=== PATIENT | female | born 1975 | race African-American/Black ===

== ENCOUNTER 2024-01-24 12:43 | Inpatient (IN) | payer OTHER ==
[2024-01-24 13:15] VITALS: BMI 33.4
[2024-01-24] MEDS ORDERED: ACETAMINOPHEN 325 MG TABLET (FP) PO PRN (13:49)
[2024-01-24] MEDS ORDERED: BISMUTH SUBSALICYLATE 524 MG/30 ML PO PRN (13:49)
[2024-01-24] MEDS ORDERED: BENZONATATE 200 MG CAPSULE PO PRN (13:49)
[2024-01-24] MEDS ORDERED: ONDANSETRON *ODT* 4 MG TABLET SL PRN (13:49)
[2024-01-24] MEDS ORDERED: LOPERAMIDE HCL 2 MG CAPSULE PO PRN (13:49)
[2024-01-24] MEDS ORDERED: hydrOXYzine PAMOATE 25 MG CAPSULE (FP) PO PRN (13:49)
[2024-01-24] MEDS ORDERED: guaiFENesin 600 MG TABLET.ER (FP) PO PRN (13:49)
[2024-01-24] MEDS ORDERED: BENZOCAINE/MENTHOL (CHLORASEPTIC ) LOZENGE MM PRN (13:49)
[2024-01-24] MEDS ORDERED: chlordiazePOXIDE HCL 25 MG CAPSULE PO PRN (13:49)
[2024-01-24] MEDS ORDERED: POLYETHYLENE GLYCOL (HEALTHYLAX) 3350 17 GM PACKET PO PRN (13:49)
[2024-01-24] MEDS: chlordiazePOXIDE HCL 25 MG CAPSULE PO SCH (17:17)
[2024-01-24] MEDS: MELATONIN 5 MG TABLETS PO SCH (22:39)
[2024-01-24] MEDS: THIAMINE HCL 100 MG TABLET (FP) PO SCH (22:39)
[2024-01-25] MEDS: IBUPROFEN 600 MG TABLET (FP) PO PRN (09:28)
[2024-01-25] MEDS: PRENATAL VITAMINS W/ FOLIC ACID TABLET (FP) PO SCH (09:29)
[2024-01-25 11:45] LABS: HEMATOCRIT 30.8 % (32.4-45.2); HEMOGLOBIN 9.6 GM/dL (10.7-15.3); MCH 23.8 pg (25.7-33.7); MCHC 31.2 g/dl (32.0-36.0); MEAN CELL VOLUME 76.1 fl (80-96); MEAN PLT VOLUME 9.6 fl (7.5-11.1); PLATELET COUNT 258 10^3/uL (134-434); RBC 4.04 M/mm3 (3.60-5.2); RDW 17.2 % (11.6-15.6); WHITE BLOOD COUNT 3.9 K/mm3 (4.0-10.0)
[2024-01-25 11:53] LABS: CHLORIDE 108 mmol/L (98-107); POTASSIUM 4.1 mmol/L (3.5-5.1); SODIUM 137 mmol/L (136-145)
[2024-01-25 12:02] LABS: CALCIUM 9.3 mg/dL (8.5-10.1)
[2024-01-25 12:03] LABS: ALBUMIN 2.9 g/dl (3.4-5.0); ANION GAP 2 mmol/L (4-13); CO2 27 mmol/L (21-32); GLUCOSE,RANDOM 84 mg/dL (74-106)
[2024-01-25 12:06] LABS: CREATININE 0.6 mg/dL (0.55-1.3); SGOT/AST 25 U/L (15-37); SGPT/ALT 25 U/L (13-61)
[2024-01-25 12:09] LABS: ALK PHOS 74 U/L (45-117); BILIRUBIN,TOTAL 0.5 mg/dL (0.2-1)
[2024-01-25] MEDS: METHOCARBAMOL 500 MG TABLET PO PRN (20:44)
[2024-01-25] MEDS: MELATONIN 5 MG TABLETS PO SCH (22:19)
[2024-01-26] MEDS: chlordiazePOXIDE HCL 25 MG CAPSULE PO SCH (05:41)
[2024-01-26] MEDS: IBUPROFEN 400 MG TABLET (FP) PO PRN (22:25)
[2024-01-27] MEDS ORDERED: chlordiazePOXIDE HCL 10 MG CAPSULE PO PRN
[2024-01-27] MEDS: chlordiazePOXIDE HCL 10 MG CAPSULE PO SCH (05:08)
[2024-01-27 15:34] LABS: IRON SERUM 20 ug/dL (50-175); TOTAL IRON BINDING CAPACITY 489 ug/dL (250-450)
[2024-01-28] MEDS: chlordiazePOXIDE HCL 10 MG CAPSULE PO SCH (05:50)
[2024-01-28] MEDS: MAG HYDROX/AL HYDROX/SIMETH 30 ML UNIT-DOSE CUP PO PRN (11:18)
[2024-01-28] MEDS: DICYCLOMINE HCL 10 MG CAPSULE PO PRN (20:24)
[2024-01-28] MEDS: MAGNESIUM HYDROX 2400MG/30ML ORAL SUSPENSION 30 ML CUP PO PRN (20:24)
[2024-01-29] MEDS: chlordiazePOXIDE HCL 10 MG CAPSULE PO ONE (05:49)
[2024-01-29 07:02] VITALS: RESP 16
[2024-01-29] MEDS: FERROUS SO4 325 MG TABLET (FP) PO SCH (07:28)
[2024-01-29 10:39] VITALS: BP 101/56; PULSE 56; TEMP 97.8
== END 2024-01-29 11:40 | disposition home or self-care (01) | DRG 775 ==
LOC: YASAS 12:43 → Y6N 13:43
PROVIDERS: ADMIT Allergy & Immunology; ATTEND Surgery
PROC: HZ2ZZZZ Detoxification Services for Substance Abuse Treatment (ICD-10-PCS; principal; 2024-01-24)
DX: F10.230 Alcohol dependence with withdrawal, uncomplicated (principal); F10.282 Alcohol dependence with alcohol-induced sleep disorder; F10.280 Alcohol dependence with alcohol-induced anxiety disorder; D50.9 Iron deficiency anemia, unspecified; Z62.810 Personal history of physical and sexual abuse in childhood; Z63.8 Other specified problems related to primary support group; Z86.39 Personal history of other endocrine, nutritional and metabolic disease; Z98.84 Bariatric surgery status
CPT/HCPCS: 36415; 80053; 80305; 80307; 81025; 82962; 83540; 83550; 85027; 86780; 93005; 93010